=== PATIENT | male | born 1995 | race Caucasian/White ===

== ENCOUNTER 2019-11-30 12:10 | Observation (INO) ==
[2019-11-30] MEDS ORDERED: SODIUM CHLORIDE 0.9% 1000ML 1,000 ML IV SCH (12:30)
--- NOTE | 2019-11-30 12:33 | Emergency Department Note ---
Impression & Plan Acute appendicitis, Abdominal pain ED Provider Note NAME: TONJA SORIA AGE: 24 SEX: M : 1995 ARRIVES VIA: Walk-In INFORMANT: Patient, ED PROVIDER(S): Dylon Hoyos DO CHIEF COMPLAINT: Abdominal pain HPI: The patient is a 24-year-old male who presented to the emergency department for an evaluation of abdominal pain. The patient is a 2-day history of abdominal pain which began diffusely but now is located in the right lower quadrant. He denies having any nausea or vomiting. He has had no fevers. He is noticed no diarrhea or rectal bleeding. The patient denies having any chest pain or difficulty breathing. He is not been seen for this pain. He states the pain is worsened with any movement as well as ambulation. He also states the pain is worsened with deep breath. The patient states his pain is moderate at this time but is relieved with lying flat. He has no testicular pain. He denies having any inguinal pain or swelling. ROS: See above HPI for pertinent positives & negatives. A total of 10 systems reviewed and were otherwise negative. PAST MEDICAL HISTORY: See Below PAST SURGICAL HISTORY: See Below FAMILY HISTORY: See Below SOCIAL HISTORY: See Below HOME MEDICATIONS: See Below ALLERGIES: See Below VITALS: See Below PHYSICAL EXAMINATION: GENERAL: Patient is awake alert in no acute distress patient is resting comfortably and showing no signs of anxiety EYES: The conjunctivae are clear. The pupils are round and reactive. EARS, NOSE, MOUTH AND THROAT: The nose is without any evidence of any deformity. Mucous membranes are moist. Tongue is midline. NECK: The neck is nontender and supple. RESPIRATORY: Normal respiratory effort is noted there is no evidence of wheezing rhonchi or rales CARDIOVASCULAR: Regular rate and rhythm noted there no murmurs rubs or gallops normal S1 normal S2. GASTROINTESTINAL: The abdomen is soft and nondistended. There is guarding in the right lower quadrant palpation. MUSCULOSKELETAL/EXTREMITIES: There is no evidence of gross deformity full range of motion is noted in the hips and shoulders. SKIN: There is no obvious evidence of any rash. There are no petechiae, pallor or cyanosis noted. NEUROLOGIC: Patient is awake alert and oriented x3. Gait is steady. MEDICAL DECISION MAKING: The patient is a 24-year-old male who presented to the emergency department for an evaluation of right lower quadrant abdominal pain. The patient's history and physical exam appear to be consistent with acute appendicitis. He was treated with IV fluids in the emergency department. He did not request any pain medication. I discussed the patient's laboratory and radiographic studies with him. On CT he was found to have signs of acute appendicitis. I discussed this case with the on-call general surgeon. They will evaluate the patient in the emergency department for further management and disposition. Triage Nursing notes reviewed. Prior medical records reviewed Vital Signs: reviewed and remarkable for no significant abnormalities Differential diagnosis: Appendicitis, testicular torsion, infections, diverticulitis, UTI, obstruction, mesenteric ischemia, aortic pathology, inflammatory bowel disease, renal colic, PUD, pancreatitis, biliary pathology, hernia, volvulus, constipation, as well as other pathologies. ER treatment provided: See below Diagnostics interpreted by me: ECG: none Cardiac Monitoring: An order was placed for continuous cardiac monitoring. The monitor shows a rate of 88 with sinus rhythm. Laboratory studies: As stated above and show below. Imaging studies: See below Consultation(s): 1320: I discussed this case with Shannon who is on-call for the general surgical group. They will evaluate the patient in the emergency department for further management and disposition. ED COURSE: Procedures: none PDMP:reviewed and no issues Critical Care: None Past Med/Surg History Medical History Heart murmur Social History Smoking Status: Never smoker Feels Safe at Home: Yes Results & Data (ED) Vital Signs Vital Signs - 24 hr 11/30/19 12:12 11/30/19 12:36 Temperature 36.8 C Temperature Source Oral Pulse Rate 74 Respiratory Rate 16 Blood Pressure 119/79 Blood Pressure Mean 92 Pulse Oximetry 99 95 Oxygen Delivery Method Room Air Room Air Sepsis Recent Fever Within 48 Hours No Sepsis New/Unexplained Change in Mental Status N/A Sepsis Action Taken by Nursing No Action Required Home Medications Current Medication List: was personally reviewed by me Laboratory Data Attestation: I reviewed the patient's lab results. Result diagrams: 11/30/19 12:30 11/30/19 12:30 Lab Results 11/30/19 11/30/19 11/30/19 Range/Units 12:30 12:30 12:30 WBC 11.71 H (4.8-10.8) K/uL RBC 5.01 (4.7-6.1) M/uL Hgb 16.0 (14.0-18.0) g/dL POC Hgb (14.0-18.0) g/dl Hct 45.1 (42-52) % POC Hct (42-52) % MCV 90.0 (80-100) fL MCH 31.9 (25-34) pg MCHC 35.5 (32-36) g/dL RDW Std Deviation 40.0 (36.4-46.3) fL RDW Coeff of Vandana 12.3 (11.5-14.5) % Plt Count 200 (130-400) K/uL MPV 10.4 (7.4-10.4) fL Immature Gran % (Auto) 0.1 % Neut % (Auto) 71.3 % Lymph % (Auto) 18.4 % [place] % (Auto) 8.8 % Eos % (Auto) 1.3 % Baso % (Auto) 0.1 % Neut # (Auto) 8.35 H (1.4-6.5) K/uL Lymph # (Auto) 2.16 (1.2-3.4) K/uL [place] # (Auto) 1.03 H (0.11-0.59) K/uL Eos # (Auto) 0.15 (0-0.5) K/uL Baso # (Auto) 0.01 (0-0.2) K/uL Immature Gran # (Auto) 0.01 (0.00-0.02) K/uL POC Sodium (135-144) mmol/L Sodium 139 (136-145) mmol/L POC Potassium (3.3-5.0) mmol/L Potassium 3.8 (3.5-5.1) mmol/L POC Chloride (101-112) mmol/L Chloride 104 (98-107) mmol/L Carbon Dioxide 30 (21-32) mmol/L POC Total CO2 (24-31) mmol/L Anion Gap 5.0 (3-11) POC Anion Gap (16-25) mmol/L POC BUN (7-18) mg/dl BUN 7 (7-18) mg/dl Creatinine 0.94 (0.6-1.4) mg/dl POC Creatinine (0.6-1.3) mg/dl Est Cr Clr Drug Dosing 143.3 ml/min Est GFR ( Amer) 132.9 Est GFR (Non-Af Amer) 114.6 BUN/Creatinine Ratio 7.7 L (10-20) Glucose 92 (70-99) mg/dl POC Glucose (other) (70-99) mg/dl Calcium 9.8 (8.5-10.1) mg/dl POC Ioniz Calcium Francisco (1.12-1.32) mmol/l Total Bilirubin 1.5 H (0.2-1) mg/dl AST 8 L (15-37) U/L ALT 18 (12-78) U/L Alkaline Phosphatase 97 (45-117) U/L Total Protein 8.3 H (6.4-8.2) gm/dl Albumin 4.7 (3.4-5.0) gm/dl Globulin 3.6 (2.5-4.0) gm/dl Albumin/Globulin Ratio 1.3 (0.9-2) Lipase 69 L (73-393) U/L Urine Color Yellow Urine Appearance Clear (Clear) Urine pH 7.0 (4.5-7.5) Ur Specific [place] 1.015 (1.000-1.030) Urine Protein Negative (Negative) Urine Glucose (UA) Negative (Negative) Urine Ketones Negative (Negative) Urine Blood Negative (Negative) Urine Nitrite Negative (Negative) Urine Bilirubin Negative (Negative) Urine Urobilinogen Negative (Negative) Ur Leukocyte Esterase Negative (Negative) 11/30/19 Range/Units 12:34 WBC (4.8-10.8) K/uL RBC (4.7-6.1) M/uL Hgb (14.0-18.0) g/dL POC Hgb 16.0 (14.0-18.0) g/dl Hct (42-52) % POC Hct 47 (42-52) % MCV (80-100) fL MCH (25-34) pg MCHC (32-36) g/dL RDW Std Deviation (36.4-46.3) fL RDW Coeff of Vandana (11.5-14.5) % Plt Count (130-400) K/uL MPV (7.4-10.4) fL Immature Gran % (Auto) % Neut % (Auto) % Lymph % (Auto) % [place] % (Auto) % Eos % (Auto) % Baso % (Auto) % Neut # (Auto) (1.4-6.5) K/uL Lymph # (Auto) (1.2-3.4) K/uL [place] # (Auto) (0.11-0.59) K/uL Eos # (Auto) (0-0.5) K/uL Baso # (Auto) (0-0.2) K/uL Immature Gran # (Auto) (0.00-0.02) K/uL POC Sodium 140 (135-144) mmol/L Sodium (136-145) mmol/L POC Potassium 4.0 (3.3-5.0) mmol/L Potassium (3.5-5.1) mmol/L POC Chloride 100 L (101-112) mmol/L Chloride (98-107) mmol/L Carbon Dioxide (21-32) mmol/L POC Total CO2 27 (24-31) mmol/L Anion Gap (3-11) POC Anion Gap 18.0 (16-25) mmol/L POC BUN 7 (7-18) mg/dl BUN (7-18) mg/dl Creatinine (0.6-1.4) mg/dl POC Creatinine 0.9 (0.6-1.3) mg/dl Est Cr Clr Drug Dosing ml/min Est GFR ( Amer) Est GFR (Non-Af Amer) BUN/Creatinine Ratio (10-20) Glucose (70-99) mg/dl POC Glucose (other) 97 (70-99) mg/dl Calcium (8.5-10.1) mg/dl POC Ioniz Calcium [place] 1.21 (1.12-1.32) mmol/l Total Bilirubin (0.2-1) mg/dl AST (15-37) U/L ALT (12-78) U/L Alkaline Phosphatase (45-117) U/L Total Protein (6.4-8.2) gm/dl Albumin (3.4-5.0) gm/dl Globulin (2.5-4.0) gm/dl Albumin/Globulin Ratio (0.9-2) Lipase (73-393) U/L Urine Color Urine Appearance (Clear) Urine pH (4.5-7.5) Ur Specific [place] (1.000-1.030) Urine Protein (Negative) Urine Glucose (UA) (Negative) Urine Ketones (Negative) Urine Blood (Negative) Urine Nitrite (Negative) Urine Bilirubin (Negative) Urine Urobilinogen (Negative) Ur Leukocyte Esterase (Negative) Administered Medications Sodium Chloride (Nss 1000ml) 1,000 mls @ 999 mls/hr IV .Q1H1M LUCIA Stop: 11/30/19 13:30 Last Admin: 11/30/19 12:38 Dose: 999 mls/hr Documented by: [id number] Discontinued Medications Ioversol (Ioversol 100ml) 94 ml IV ONCE ONE Stop: 11/30/19 13:03 Last Admin: 11/30/19 13:03 Dose: 94 ml Documented by: [id number] Imaging Data Radiologist's Impression: CT abd pelvis IV con only CLINICAL HISTORY: Right lower quadrant abdominal pain COMPARISON STUDY: None. TECHNIQUE: Patient was scanned in a dynamic helical fashion during intravenous administration of 93 cc of Optiray 320 A dose lowering technique was utilized adhering to the principles of ALARA. CT DOSE: 642.57 mGy.cm FINDINGS: Lower chest: The heart is normal in size and configuration, without pericardial effusion. The lung bases and pleural spaces are clear. Liver: There is minimal periportal edema likely secondary to hydration Gallbladder: Unremarkable. Spleen: Upper limits of normal in size Pancreas: Unremarkable. Adrenal glands: Unremarkable. Kidneys: There is symmetric renal cortical enhancement. The kidneys are normal in size without hydronephrosis. Bowel: There are no transition zones to indicate bowel obstruction. There is no evidence of acute diverticulitis. There is a dilated fluid-filled 13 mm in diameter appendix with extensive periappendiceal inflammatory change. The findings are indicative of acute appendicitis and surgical consultation is advocated. Minimal wall thickening of the terminal ileum is felt to be secondary to the appendiceal inflammatory changes. There are no fluid collections to indicate a drainable abscess. Peritoneum: There is a small amount of free fluid within the right paracolic gutter and pelvis. Vasculature: The abdominal aorta is normal in course and caliber. Adenopathy: Mildly prominent right ileocolic lymph nodes are felt to be reactive. Pelvic viscera: The bladder, and pelvic viscera are unremarkable. Skeletal structures: No destructive osseous lesions are seen. IMPRESSION: 1. Dilated fluid-filled appendix with extensive periappendiceal inflammatory changes. The findings are indicative of acute appendicitis. Surgical consultation is advocated. ACT 112: Negative or not required by law. Electronically signed by: Hung Rai M.D. 11/30/2019 1:15 PM Dictated: 11/30/19 1309 Transcribed: 11/30/19 1314 Blood Pressure Blood Pressure Findings: Normal blood pressure Discharge Plan Visit Data Chief Complaint: Abdominal Pain Stated Complaint: ABD PAIN ED Provider: Dylon Hoyos Discharge Problem: Acute appendicitis, Abdominal pain Patient Disposition: Being Evaluated by Surgeon Condition: Good Forms Stand Alone Forms: [facility] Referrals Referrals: [facility] [Primary Care Provider] - Discharge Problem: Acute appendicitis Qualifiers: Acute appendicitis type: with localized peritonitis Appendicitis gangrene presence: without gangrene Appendicitis perforation presence: without perforatio n Appendicitis abscess presence: without abscess Qualified Code(s): K35.30 - Acute appendicitis with localized peritonitis, without perforation or gangrene Abdominal pain Qualifiers: Abdominal location: right lower quadrant Qualified Code(s): R10.31 - Right low er quadrant pain
[2019-11-30 12:43] LABS: Appearance Urine Clear (Clear); Bilirubin Urine Negative (Negative); Blood Urine Negative (Negative); Color Urine Yellow; Glucose Urine UA Negative (Negative); Ketones Urine Negative (Negative); Leukocyte Esterase Urine Negative (Negative); Nitrite Urine Negative (Negative); Protein Urine Negative (Negative); Specific Gravity Urine 1.015 (1.000-1.030); Urobilinogen Urine Negative (Negative)
[2019-11-30 12:45] LABS: Basophils # (auto) 0.01 K/uL (0-0.2); Basophils % (auto) 0.1 %; Eosinophils # (auto) 0.15 K/uL (0-0.5); Eosinophils % (auto) 1.3 %; Hematocrit (blood only) 45.1 % (42-52); Immature Granulocytes # (auto) 0.01 K/uL (0.00-0.02); Immature Granulocytes % (auto) 0.1 %; Lymphocytes # (auto) 2.16 K/uL (1.2-3.4); Lymphocytes % (auto) 18.4 %; Mean Corpuscular Hemoglobin 31.9 pg (25-34); Mean Corpuscular Hgb Conc 35.5 g/dL (32-36); Mean Platelet Volume 10.4 fL (7.4-10.4); Monocytes # (auto) 1.03 K/uL (0.11-0.59); Monocytes % (auto) 8.8 %; Neutrophils # (auto) 8.35 K/uL (1.4-6.5); Neutrophils % (auto) 71.3 %; Platelet Count 200 K/uL (130-400); RDW Coefficient of Variation 12.3 % (11.5-14.5); Red Blood Count 5.01 M/uL (4.7-6.1); White Blood Count 11.71 K/uL (4.8-10.8)
[2019-11-30 12:47] LABS: iSTAT Creatinine 0.9 mg/dl (0.6-1.3); iSTAT Ionized Calcium 1.21 mmol/l (1.12-1.32)
[2019-11-30 12:53] LABS: Albumin Level 4.7 gm/dl (3.4-5.0); BUN Creatinine Ratio 7.7 (10-20); Calcium 9.8 mg/dl (8.5-10.1); Creatinine Clr Calc Pharmacy 143.3 ml/min; Est GFR (African American) 132.9; Est GFR (Non-African American) 114.6; Potassium 3.8 mmol/L (3.5-5.1)
[2019-11-30 12:56] LABS: Albumin Globulin Ratio 1.3 (0.9-2); Bilirubin,Total 1.5 mg/dl (0.2-1); Globulin 3.6 gm/dl (2.5-4.0); Total Protein 8.3 gm/dl (6.4-8.2)
[2019-11-30] MEDS ORDERED: IOVERSOL 100ml IV ONE (13:02)
--- NOTE | 2019-11-30 13:16 | CT Scan Report ---
CT abd pelvis IV con only CLINICAL HISTORY: Right lower quadrant abdominal pain COMPARISON STUDY: None. TECHNIQUE: Patient was scanned in a dynamic helical fashion during intravenous administration of 93 c c of Optiray 320 A dose lowering technique was utilized adhering to the principles of ALARA. CT DOSE: 642.57 mGy.cm FINDINGS: Lower chest: The heart is normal in size and configuration, without pericardial effusion. The lung ba ses and pleural spaces are clear. Liver: There is minimal periportal edema likely secondary to hydration Gallbladder: Unremarkable. Spleen: Upper limits of normal in size Pancreas: Unremarkable. Adrenal glands: Unremarkable. Kidneys: There is symmetric renal cortical enhancement. The kidneys are normal in size without hydron ephrosis. Bowel: There are no transition zones to indicate bowel obstruction. There is no evidence of acute div erticulitis. There is a dilated fluid-filled 13 mm in diameter appendix with extensive periappendicea l inflammatory change. The findings are indicative of acute appendicitis and surgical consultation is advocated. Minimal wall thickening of the terminal ileum is felt to be secondary to the appendiceal inflammatory changes. There are no fluid collections to indicate a drainable abscess. Peritoneum: There is a small amount of free fluid within the right paracolic gutter and pelvis. Vasculature: The abdominal aorta is normal in course and caliber. Adenopathy: Mildly prominent right ileocolic lymph nodes are felt to be reactive. Pelvic viscera: The bladder, and pelvic viscera are unremarkable. Skeletal structures: No destructive osseous lesions are seen. IMPRESSION: 1. Dilated fluid-filled appendix with extensive periappendiceal inflammatory changes. The findings ar e indicative of acute appendicitis. Surgical consultation is advocated. ACT 112: Negative or not required by law. Electronically signed by: Hung Rai M.D. 11/30/2019 1:15 PM
--- NOTE | 2019-11-30 14:08 | History & Physical Report ---
Date of Service November 30, 2019 Assessment & Plan (1) Acute appendicitis: 24 year-old male with 24 hour history of abdominal pain with no other symptoms now presenting with mild leukocytosis and CT scan consistent with acute appendicitis. Extensive periappendiceal inflammation on CT but no evidence of abscess or perforation. Plan: Discussed CT scan findings with patient. Recommend laparoscopic appendectomy. Discussed procedure, risks, recovery, and alternatives with patient. Patient a grees to proceed with surgery. Keep NPO will start IV abx preoperatively given extensive periappendiceal inflammation. Cipro and Flagyl due to penicillin allergy med/surg postop (2) Abdominal pain: secondary to acute appendicitis Discussed with Dr. Iraheta who is to evaluate patient preoperatively and sign consent form. History of Present Illness Chief Complaint: abdominal pain Primary Care Provider: [facility] Maksim is a 24 year-old male who presented to ED today with complaint of abdominal pain that began yesterday morning. More generalized pain at first and then now more located in the right lower abdomen. Denies of any associated fever, chills, nausea, vomiting, chest pain, shortness of breath, diarrhea, blood in stools, difficulty urinating , dysuria, or blood in urine. Never had this type of pain before. No prior abdominal surgeries. Has history of aortic murmur but otherwise healthy. ER work-up included labs which showed mild leukocytosis of 11K. CT scan of ab domen and pelvis with IV contrast showing dilated appendix at 13 mm with extensive periappendiceal inflammation, no evidence of abscess or perforation. Allergies Allergy/AdvReac Type Severity Reaction Status Date / Time amoxicillin [From Augmentin] AdvReac Unknown Verified 11/30/19 14:08 clavulanic acid AdvReac Unknown Verified 11/30/19 14:08 [From Augmentin] Penicillins AdvReac Unknown Verified 11/30/19 14:08 Past Med/Surg History Medical History (Updated 11/30/19 @ 13:19 by Dylon Hoyos DO) Heart murmur Surgical History (Updated 11/30/19 @ 14:03 by Shannon Serra PA-C) No history of previous surgery Family History (Updated 11/30/19 @ 14:04 by Shannon Serra PA-C) Grandfather Coronary heart disease Mother Atrial fibrillation Other Diabetes Social History Smoking Status: Never smoker Feels Safe at Home: Yes Review of Systems Review of Systems: All systems reviewed & are unremarkable except as noted in HPI & below Physical Exam Constitutional: WD/WN, vitals as above no acute distress and not ill appearing Respiratory: normal respiratory effort, lungs clear to auscultation Cardiovascular: RRR, no murmur, no edema Gastrointestinal (Abdomen): Inspection/Auscultation: abdomen normal to inspection; abdomen not distended Percussion/Palpation: + abdomen tender (RLQ, + McBurney's point), + guarding (RLQ on deep palpation) and abdomen soft; abdomen not rigid Skin: no rashes, warm and dry Psychiatric: A+Ox3, euthymic affect Results & Data Results & Data ([facility]) Vital Signs (Past 12 Hours) Vital Signs Temp Pulse Resp BP Pulse Ox 11/30/19 12:36 95 11/30/19 12:12 36.8 C 74 16 119/79 99 Laboratory Results 11/30/19 11/30/19 11/30/19 Range/Units 12:34 12:30 12:30 WBC (4.8-10.8) K/uL RBC (4.7-6.1) M/uL Hgb (14.0-18.0) g/dL POC Hgb 16.0 (14.0-18.0) g/dl Hct (42-52) % POC Hct 47 (42-52) % MCV (80-100) fL MCH (25-34) pg MCHC (32-36) g/dL RDW Std Deviation (36.4-46.3) fL RDW Coeff of Vandana (11.5-14.5) % Plt Count (130-400) K/uL MPV (7.4-10.4) fL Immature Gran % (Auto) % Neut % (Auto) % Lymph % (Auto) % [place] % (Auto) % Eos % (Auto) % Baso % (Auto) % Neut # (Auto) (1.4-6.5) K/uL Lymph # (Auto) (1.2-3.4) K/uL [place] # (Auto) (0.11-0.59) K/uL Eos # (Auto) (0-0.5) K/uL Baso # (Auto) (0-0.2) K/uL Immature Gran # (Auto) (0.00-0.02) K/uL POC Sodium 140 (135-144) mmol/L Sodium 139 (136-145) mmol/L POC Potassium 4.0 (3.3-5.0) mmol/L Potassium 3.8 (3.5-5.1) mmol/L POC Chloride 100 L (101-112) mmol/L Chloride 104 (98-107) mmol/L Carbon Dioxide 30 (21-32) mmol/L POC Total CO2 27 (24-31) mmol/L Anion Gap 5.0 (3-11) POC Anion Gap 18.0 (16-25) mmol/L POC BUN 7 (7-18) mg/dl BUN 7 (7-18) mg/dl Creatinine 0.94 (0.6-1.4) mg/dl POC Creatinine 0.9 (0.6-1.3) mg/dl Est Cr Clr Drug Dosing 143.3 ml/min Est GFR ( Amer) 132.9 Est GFR (Non-Af Amer) 114.6 BUN/Creatinine Ratio 7.7 L (10-20) Glucose 92 (70-99) mg/dl POC Glucose (other) 97 (70-99) mg/dl Calcium 9.8 (8.5-10.1) mg/dl POC Ioniz Calcium Francisco 1.21 (1.12-1.32) mmol/l Total Bilirubin 1.5 H (0.2-1) mg/dl AST 8 L (15-37) U/L ALT 18 (12-78) U/L Alkaline Phosphatase 97 (45-117) U/L Total Protein 8.3 H (6.4-8.2) gm/dl Albumin 4.7 (3.4-5.0) gm/dl Globulin 3.6 (2.5-4.0) gm/dl Albumin/Globulin Ratio 1.3 (0.9-2) Lipase 69 L (73-393) U/L Urine Color Yellow Urine Appearance Clear (Clear) Urine pH 7.0 (4.5-7.5) Ur Specific [place] 1.015 (1.000-1.030) Urine Protein Negative (Negative) Urine Glucose (UA) Negative (Negative) Urine Ketones Negative (Negative) Urine Blood Negative (Negative) Urine Nitrite Negative (Negative) Urine Bilirubin Negative (Negative) Urine Urobilinogen Negative (Negative) Ur Leukocyte Esterase Negative (Negative) 11/30/19 Range/Units 12:30 WBC 11.71 H (4.8-10.8) K/uL RBC 5.01 (4.7-6.1) M/uL Hgb 16.0 (14.0-18.0) g/dL POC Hgb (14.0-18.0) g/dl Hct 45.1 (42-52) % POC Hct (42-52) % MCV 90.0 (80-100) fL MCH 31.9 (25-34) pg MCHC 35.5 (32-36) g/dL RDW Std Deviation 40.0 (36.4-46.3) fL RDW Coeff of Vandana 12.3 (11.5-14.5) % Plt Count 200 (130-400) K/uL MPV 10.4 (7.4-10.4) fL Immature Gran % (Auto) 0.1 % Neut % (Auto) 71.3 % Lymph % (Auto) 18.4 % Mck[place]ley % (Auto) 8.8 % Eos % (Auto) 1.3 % Baso % (Auto) 0.1 % Neut # (Auto) 8.35 H (1.4-6.5) K/uL Lymph # (Auto) 2.16 (1.2-3.4) K/uL Mck[place] # (Auto) 1.03 H (0.11-0.59) K/uL Eos # (Auto) 0.15 (0-0.5) K/uL Baso # (Auto) 0.01 (0-0.2) K/uL Immature Gran # (Auto) 0.01 (0.00-0.02) K/uL POC Sodium (135-144) mmol/L Sodium (136-145) mmol/L POC Potassium (3.3-5.0) mmol/L Potassium (3.5-5.1) mmol/L POC Chloride (101-112) mmol/L Chloride (98-107) mmol/L Carbon Dioxide (21-32) mmol/L POC Total CO2 (24-31) mmol/L Anion Gap (3-11) POC Anion Gap (16-25) mmol/L POC BUN (7-18) mg/dl BUN (7-18) mg/dl Creatinine (0.6-1.4) mg/dl POC Creatinine (0.6-1.3) mg/dl Est Cr Clr Drug Dosing ml/min Est GFR ( Amer) Est GFR (Non-Af Amer) BUN/Creatinine Ratio (10-20) Glucose (70-99) mg/dl POC Glucose (other) (70-99) mg/dl Calcium (8.5-10.1) mg/dl POC Ioniz Calcium Francisco (1.12-1.32) mmol/l Total Bilirubin (0.2-1) mg/dl AST (15-37) U/L ALT (12-78) U/L Alkaline Phosphatase (45-117) U/L Total Protein (6.4-8.2) gm/dl Albumin (3.4-5.0) gm/dl Globulin (2.5-4.0) gm/dl Albumin/Globulin Ratio (0.9-2) Lipase (73-393) U/L Urine Color Urine Appearance (Clear) Urine pH (4.5-7.5) Ur Specific [place] (1.000-1.030) Urine Protein (Negative) Urine Glucose (UA) (Negative) Urine Ketones (Negative) Urine Blood (Negative) Urine Nitrite (Negative) Urine Bilirubin (Negative) Urine Urobilinogen (Negative) Ur Leukocyte Esterase (Negative) Diagnostic Findings CT abd pelvis IV con only CLINICAL HISTORY: Right lower quadrant abdominal pain COMPARISON STUDY: None. TECHNIQUE: Patient was scanned in a dynamic helical fashion during intravenous administration of 93 cc of Optiray 320 A dose lowering technique was utilized adhering to the principles of ALARA. CT DOSE: 642.57 mGy.cm FINDINGS: Lower chest: The heart is normal in size and configuration, without pericardial effusion. The lung bases and pleural spaces are clear. Liver: There is minimal periportal edema likely secondary to hydration Gallbladder: Unremarkable. Spleen: Upper limits of normal in size Pancreas: Unremarkable. Adrenal glands: Unremarkable. Kidneys: There is symmetric renal cortical enhancement. The kidneys are normal in size without hydronephrosis. Bowel: There are no transition zones to indicate bowel obstruction. There is no evidence of acute diverticulitis. There is a dilated fluid-filled 13 mm in diameter appendix with extensive periappendiceal inflammatory change. The findings are indicative of acute appendicitis and surgical consultation is advocated. Minimal wall thickening of the terminal ileum is felt to be secondary to the appendiceal inflammatory changes. There are no fluid collections to indicate a drainable abscess. Peritoneum: There is a small amount of free fluid within the right paracolic gutter and pelvis. Vasculature: The abdominal aorta is normal in course and caliber. Adenopathy: Mildly prominent right ileocolic lymph nodes are felt to be reactive. Pelvic viscera: The bladder, and pelvic viscera are unremarkable. Skeletal structures: No destructive osseous lesions are seen. IMPRESSION: 1. Dilated fluid-filled appendix with extensive periappendiceal inflammatory changes. The findings are indicative of acute appendicitis. Surgical consultation is advocated. Code Status & VTE Plan VTE Prophylaxis Plan VTE Prophylaxis will be ordered: Yes (1) Acute appendicitis Acute appendicitis type: with localized peritonitis Appendicitis abscess presence: without abscess Appendicitis gangrene presence: without gangrene Appendicitis perforation presence: without perforation Qualified Code(s): K35.30 - Acute appendicitis with localized peritonitis, without perforation or gangrene (2) Abdominal pain Abdominal location: right lower quadrant Qualified Code(s): R10.31 - Right l ower quadrant pain
--- NOTE | 2019-11-30 15:32 | Anesthesiology Consultation ---
Date of Service November 30, 2019 Assessment & Plan Chart Review Chart Review: Acceptable Risk for Surgery and Patient NOT seen in Pre Admission Testing Consults Requested none ASA [id number] Proposed Anesthesia Anesthesia Type: General History Surgery Operation Date: 11/30/19 10:50 Proposed Procedures p Laparoscopic Appendectomy - Kendall Iraheta MD Height/Weight Height: 6 ft 2 in Weight: 93 kg Allergies Allergy/AdvReac Type Severity Reaction Status Date / Time amoxicillin [From Augmentin] AdvReac Unknown Verified 11/30/19 14:08 clavulanic acid AdvReac Unknown Verified 11/30/19 14:08 [From Augmentin] Penicillins AdvReac Unknown Verified 11/30/19 14:08 Medications Home Medications Medication Instructions Recorded Confirmed Last Taken cetirizine [Zyrtec] 10 mg PO DAILY 11/30/19 11/30/19 11/28/19 NPO Date Last Intake of Fluids: 11/30/19 Time Last Intake of Fluids: 11:30 Last Intake of Fluids Comment: "half a cup of water" Date Last Intake of Solids: 11/29/19 Time Last Intake of Solids: 20:30 Past Medical History Medical History Heart murmur Exercise / Class Metabolic Activity 1 > 8 Run/Swim/Ski/Tennis Past Family History Family History Grandfather Coronary heart disease Mother Atrial fibrillation Other Diabetes Past Surgical History Surgical History No history of previous surgery Past Anesthesia History No Hx of Anesthesia Complications and No Family Hx of Anesthesia Complications History of PONV No Hx of PONV and No Hx of Motion Sickness Social History Smoking Status: Never smoker Physical Exam Vital Signs Last Vital Signs Temp 36.8 C 11/30/19 12:12 Pulse 67 11/30/19 14:02 Resp 18 11/30/19 14:02 BP 115/70 11/30/19 14:02 Pulse Ox 99 11/30/19 14:02 Testing Laboratory Results 11/30/19 12:30 11/30/19 12:30 Urine Color Yellow 11/30/19 12:30 Urine Appearance Clear (Clear) 08/18/20 12:30 Urine pH 7.0 (4.5-7.5) 11/30/19 12:30 Ur Specific [place] 1.015 (1.000-1.030) 11/30/19 12:30 Urine Protein Negative (Negative) 11/30/19 12:30 Urine Glucose (UA) Negative (Negative) 11/30/19 12:30 Urine Ketones Negative (Negative) 11/30/19 12:30 Urine Nitrite Negative (Negative) 11/30/19 12:30 Ur Leukocyte Esterase Negative (Negative) 11/30/19 12:30 11/30/19 12:34 POC Glucose (other) 97
[2019-11-30] MEDS ORDERED: ONDANSETRON INJ 2 MG/ML 2 ML VIAL ONE (15:35)
[2019-11-30] MEDS ORDERED: ROCURONIUM BROMIDE 10 MG/ML 5 ML VIAL IV ONE (15:35)
[2019-11-30] MEDS ORDERED: fentaNYL citrate 100 MCG/2 ML VIAL ONE ×2 (15:35→16:50)
[2019-11-30] MEDS ORDERED: MIDAZOLAM HCL 1 MG/ML 2ML VIAL ONE (15:35)
[2019-11-30] MEDS ORDERED: PROPOFOL IV EMULSION 10 MG/ML 20 ML VIAL IV ONE (15:35)
[2019-11-30] MEDS ORDERED: LIDOCAINE HCL 2% 2 ML VIAL/AMP(20MG/ML) INFIL ONE (15:35)
[2019-11-30] MEDS ORDERED: metroNIDAZOLE 500 MG/100 ML BAG IV STA (16:05)
[2019-11-30] MEDS ORDERED: ePHEDrine sulfate 50 MG/ML AMP IV PRN (16:06)
[2019-11-30] MEDS ORDERED: PROMETHAZINE HCL 12.5 MG in SODIUM CHLORIDE 0.9% 50 ML IV PRN (16:06)
[2019-11-30] MEDS ORDERED: ONDANSETRON INJ 2 MG/ML 2 ML VIAL IV PRN ×2 (16:06→17:37)
[2019-11-30] MEDS ORDERED: fentaNYL citrate 100 MCG/2 ML VIAL IV PRN (16:06)
[2019-11-30] MEDS ORDERED: ATROPINE SULFATE 0.1 MG/ML 10ML SYR IV PRN (16:06)
[2019-11-30] MEDS ORDERED: NALOXONE HCL 0.4 MG/1 ML VIAL/CARP IV PRN (16:06)
[2019-11-30] MEDS ORDERED: FLUMAZENIL 0.1 MG/1 ML 10 ML VIAL IV PRN (16:06)
[2019-11-30] MEDS ORDERED: HYDROmorphone INJ 1 MG/ML SYRINGE IV PRN (16:06)
[2019-11-30] MEDS ORDERED: BUPIVACAINE 0.5 % 5 MG/1 ML MPF 30ML VIAL ONE (16:08)
[2019-11-30] MEDS ORDERED: BACITRACIN OINT 15 GM TUBE ONE (16:08)
[2019-11-30] MEDS ORDERED: LIDOCAINE HCL 1% 20 ML VIAL ONE (16:08)
[2019-11-30] MEDS ORDERED: CIPROFLOXACIN 400MG / 200ML D5W IV ONE (16:09)
--- NOTE | 2019-11-30 16:16 | History & Physical Bridge Note ---
Date of Service November 30, 2019 History & Physical Bridge Note I have examined the patient, reviewed the History & Physical and in the interval since the performance of the History & Physical I have noted the following changes of clinical significance: no changes noted
[2019-11-30] MEDS ORDERED: GLYCOPYRROLATE 0.2 MG/ML VIAL ONE (17:17)
[2019-11-30] MEDS ORDERED: NEOSTIGMINE METHYLSULFATE 5 MG/5 ML SYR ONE (17:17)
--- NOTE | 2019-11-30 17:19 | Communication Note ---
Date of Service: November 30, 2019 covid rapid test negative
--- NOTE | 2019-11-30 17:33 | Post Operative Brief Note ---
Immediate Post Op Note v1 Date of Surgery November 30, 2019 Pre & Post Diagnosis Operation Date: 11/30/19 10:50 Pre-Op Diagnosis: Acute appendicitis. Post-Op Diagnosis: Acute appendicitis. 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
--- NOTE | 2019-11-30 18:16 | Anesthesiology Progress Note ---
Date of Service November 30, 2019 Anesthesia Post Procedure Vital Signs Vital Signs: Temp Pulse Pulse Pulse Resp BP BP 11/30/19 18:00 64 19 100/60 11/30/19 17:50 76 16 110/65 11/30/19 17:44 36.9 C 60 17 103/60 11/30/19 15:48 37.2 C 75 81 20 114/68 109/76 11/30/19 14:02 67 18 115/70 11/30/19 12:36 11/30/19 12:12 36.8 C 74 16 119/79 Pulse Ox 11/30/19 18:00 98 11/30/19 17:50 100 11/30/19 17:44 100 11/30/19 15:48 97 11/30/19 14:02 99 11/30/19 12:36 95 11/30/19 12:12 99 Pain Intensity Abdomen: Pain Intensity: 5 Transfer of Care Handoff Completed per policy Notes Mental Status: alert / awake / arousable Patient Amnestic to Procedure: Yes Nausea / Vomiting: adequately controlled Pain: adequately controlled Airway Patency, RR, SpO2: stable & adequate BP & HR: stable & adequate Hydration State: stable & adequate Anesthetic Complications: no major complications apparent
[2019-11-30] MEDS ORDERED: LACTATED RINGER'S 1,000 ML IV SCH (19:21)
[2019-11-30] MEDS: OXYCODONE/ACETAMINOPHEN 5mg/325mg TAB PO PRN ×2 (19:50→23:38)
[2019-11-30] MEDS: HYDROmorphone INJ 0.5 MG/0.5 ML SYR IV PRN (21:55)
[2019-11-30] MEDS: metroNIDAZOLE 500 MG/100 ML BAG IV SCH (23:30)
--- NOTE | 2019-11-30 23:52 | Operative Report (OR) ---
DATE OF OPERATION: 11/30/2019 PREOPERATIVE DIAGNOSIS: Acute appendicitis. POSTOPERATIVE DIAGNOSIS: Acute appendicitis. PROCEDURE: Laparoscopic appendectomy. SURGEON: Kendall Iraheta MD. ANESTHESIA: General. ESTIMATED BLOOD LOSS: About 10 mL. FINDINGS: Acute appendicitis, significant inflammation on the appendix, enlarged. COMPLICATIONS: None. INDICATIONS FOR THE PROCEDURE: This is a 24-year-old gentleman who presented to the ED with acute abdominal pain. The patient had a CT scan diagnosis of acute appendicitis. I recommended to do laparoscopic appendectomy, possible open. I did talk to the patient about the benefit, the risk, alternate procedure. I indicated the risks may include but not limited such as bleeding, infection, abscess, sepsis, injury to other organs, bowel obstruction. The patient understands. He signed informed consent and I answered all questions. DETAILS OF PROCEDURE: We brought the patient to the OR, put the patient in the supine position. The patient received SCD on bilateral legs to prevent DVT. Also, patient received 400 mg of Cipro IV for prophylactic antibiotic and patient also received 500 mg Flagyl IV for prophylactic antibiotic. The patient received general anesthesia without difficulty. The abdomen was prepped and draped in routine sterile fashion. After timeout, I injected the local anesthesia by using 1% lidocaine mixed with 0.5% Marcaine just above the umbilicus. Then I made a small incision just above umbilicus, opened fascia and opened peritoneum under direct vision, put a Marcia trocar in, connected to CO2 to create pneumoperitoneum. Flow rate at 6 liter per minute. Pressure not more than 14 mmHg. Once we got a nice pneumoperitoneum, we put the camera in, looked around the abdomen, shows normal finding on the small bowel, large bowel; however, the appendix showed significant inflammation with enlarge confirmed diagnosis of acute appendicitis, and also patient has a lot of scar around the cecum and once confirmed diagnosis, we put another two 5 mm trocar on the left lower quadrant where we mobilized the appendix and we used the Harmonic to take down the appendiceal. The patient had a lot of scar around the cecum. So once we reached the base of the appendix, we used a 45 mm Endo-KARIS staple for transection on the base of the appendix, rechecked the staple line intact. No leak. Then we removed the appendix through the catch bag. Then we reinserted Marcia trocar in, connected to CO2 to create pneumoperitoneum, again looked around the abdomen, shows staple line intact. No leak and no active bleeding. Then we removed all trocar under direct vision. No active bleeding from the trocar sites. Pneumoperitoneum was released, closed the umbilical incision, fascial layer by using #1 Vicryl [id number] x2, closed subcutaneous layer by using 2-0 Vicryl interruptedly, closed skin by using 4-0 Vicryl continuous running, closed another two 5 mm trocar site skin only by using 4-0 Vicryl. Then, we put the dressing on. The patient tolerated the procedure well. All instrument, needle and sponge count correct x2 at the end of the case. The patient transferred to recovery room in stable condition. I attest to the content of the Intraoperative Record and any orders documented therein. Any exception s are noted below.
[2019-12-01] MEDS: HYDROmorphone INJ 0.5 MG/0.5 ML SYR IV PRN ×2 (02:29→08:03)
[2019-12-01] MEDS ORDERED: CIPROFLOXACIN / D5W 200 MG/100 ML BAG IV SCH (04:00)
[2019-12-01] MEDS: OXYCODONE/ACETAMINOPHEN 5mg/325mg TAB PO PRN ×3 (05:51→15:02)
[2019-12-01] MEDS ORDERED: CIPROFLOXACIN / D5W 400 MG/200 ML BAG IV SCH (06:00)
[2019-12-01 06:19] LABS: Basophils # (auto) 0.01 K/uL (0-0.2); Basophils % (auto) 0.1 %; Eosinophils # (auto) 0.16 K/uL (0-0.5); Eosinophils % (auto) 1.6 %; Hemoglobin 13.7 g/dL (14.0-18.0); Immature Granulocytes # (auto) 0.02 K/uL (0.00-0.02); Immature Granulocytes % (auto) 0.2 %; Lymphocytes # (auto) 2.28 K/uL (1.2-3.4); Lymphocytes % (auto) 22.3 %; Mean Corpuscular Hemoglobin 31.1 pg (25-34); Mean Corpuscular Hgb Conc 34.3 g/dL (32-36); Mean Corpuscular Volume 90.9 fL (80-100); Mean Platelet Volume 10.4 fL (7.4-10.4); Monocytes # (auto) 1.18 K/uL (0.11-0.59); Monocytes % (auto) 11.5 %; Neutrophils # (auto) 6.57 K/uL (1.4-6.5); Neutrophils % (auto) 64.3 %; Platelet Count 167 K/uL (130-400); RDW Coefficient of Variation 12.3 % (11.5-14.5); White Blood Count 10.22 K/uL (4.8-10.8)
[2019-12-01 06:43] LABS: Albumin Level 3.4 gm/dl (3.4-5.0); BUN Creatinine Ratio 6.2 (10-20); Creatinine Clr Calc Pharmacy 144.9 ml/min; Est GFR (African American) 134.6; Est GFR (Non-African American) 116.1; Potassium 3.8 mmol/L (3.5-5.1)
[2019-12-01 06:50] LABS: Albumin Globulin Ratio 1.2 (0.9-2); Bilirubin,Total 1.5 mg/dl (0.2-1); Globulin 2.9 gm/dl (2.5-4.0); Total Protein 6.3 gm/dl (6.4-8.2)
[2019-12-01] MEDS: metroNIDAZOLE 500 MG/100 ML BAG IV SCH (08:08)
[2019-12-01] MEDS ORDERED: ACETAMINOPHEN 325 MG TAB PO PRN (08:30)
[2019-12-01] MEDS ORDERED: CETIRIZINE HCL 10 MG TABLET PO SCH (09:00)
[2019-12-01] MEDS ORDERED: IBUPROFEN 600 MG TAB PO PRN (09:45)
--- NOTE | 2019-12-01 12:06 | Surgery Progress Note ---
Date of Service December 01, 2019 Assessment & Plan (1) Acute appendicitis: POD # 1 s/p laparoscopic appendectomy -vitals stable, afebrile - moderate postop pain , controlled - adequate urine output but subjective urinary retention - no n/v Plan: Advised oral pain medication as needed instead of IV Dilaudid encouraged ambulation advance diet as tolerated will monitor urine output throughout day likely discharge this afternoon home with 5 days of cipro/flagyl Dr. Iraheta has seen and examined pt, agrees with above. Admission and Anticipated Discharge Date Admission Date: November 30, 2019 Subjective having some postop pain at incisions, preop pain resolved having some difficulty urinating since surgery but has had adequate urine output no n/v tolerated clear liquids pain being controlled with IV dilaudid and Percocet Physical Exam Constitutional: WD/WN, vitals as above no acute distress Respiratory: normal respiratory effort; no respiratory distress Gastrointestinal (Abdomen): Inspection/Auscultation: abdomen normal to inspection; abdomen not distended Percussion/Palpation: + abdomen tender (at incision sites and RLQ appropriate postop) Skin: no rashes, warm and dry + incision (Covered with dry dressings clean/dry/intact) Psychiatric: A+Ox3, euthymic affect Results & Data ([facility]) Vital Signs (Past 12 Hours) Vital Signs Temp Pulse Resp BP Pulse Ox 12/01/19 11:56 36.6 C 60 16 107/68 97 12/01/19 07:55 36.6 C 62 17 106/66 93 12/01/19 03:18 102/69 12/01/19 03:14 36.5 C 58 L 18 92/56 L 96 Laboratory Results 12/01/19 12/01/19 11/30/19 Range/Units 05:33 05:33 15:33 WBC 10.22 (4.8-10.8) K/uL RBC 4.40 L (4.7-6.1) M/uL Hgb 13.7 L (14.0-18.0) g/dL POC Hgb (14.0-18.0) g/dl Hct 40.0 L (42-52) % POC Hct (42-52) % MCV 90.9 (80-100) fL MCH 31.1 (25-34) pg MCHC 34.3 (32-36) g/dL RDW Std Deviation 41.0 (36.4-46.3) fL RDW Coeff of Vandana 12.3 (11.5-14.5) % Plt Count 167 (130-400) K/uL MPV 10.4 (7.4-10.4) fL Immature Gran % (Auto) 0.2 % Neut % (Auto) 64.3 % Lymph % (Auto) 22.3 % [place] % (Auto) 11.5 % Eos % (Auto) 1.6 % Baso % (Auto) 0.1 % Neut # (Auto) 6.57 H (1.4-6.5) K/uL Lymph # (Auto) 2.28 (1.2-3.4) K/uL [place] # (Auto) 1.18 H (0.11-0.59) K/uL Eos # (Auto) 0.16 (0-0.5) K/uL Baso # (Auto) 0.01 (0-0.2) K/uL Immature Gran # (Auto) 0.02 (0.00-0.02) K/uL POC Sodium (135-144) mmol/L Sodium 140 (136-145) mmol/L POC Potassium (3.3-5.0) mmol/L Potassium 3.8 (3.5-5.1) mmol/L POC Chloride (101-112) mmol/L Chloride 106 (98-107) mmol/L Carbon Dioxide 30 (21-32) mmol/L POC Total CO2 (24-31) mmol/L Anion Gap 4.0 (3-11) POC Anion Gap (16-25) mmol/L POC BUN (7-18) mg/dl BUN 6 L (7-18) mg/dl Creatinine 0.93 (0.6-1.4) mg/dl POC Creatinine (0.6-1.3) mg/dl Est Cr Clr Drug Dosing 144.9 ml/min Est GFR ( Amer) 134.6 Est GFR (Non-Af Amer) 116.1 BUN/Creatinine Ratio 6.2 L (10-20) Glucose 96 (70-99) mg/dl POC Glucose (other) (70-99) mg/dl Calcium 8.0 L D (8.5-10.1) mg/dl POC Ioniz Calcium [place] (1.12-1.32) mmol/l Total Bilirubin 1.5 H (0.2-1) mg/dl AST 5 L (15-37) U/L ALT 13 (12-78) U/L Alkaline Phosphatase 69 (45-117) U/L Total Protein 6.3 L D (6.4-8.2) gm/dl Albumin 3.4 (3.4-5.0) gm/dl Globulin 2.9 (2.5-4.0) gm/dl Albumin/Globulin Ratio 1.2 (0.9-2) Lipase (73-393) U/L Urine Color Urine Appearance (Clear) Urine pH (4.5-7.5) Ur Specific [place] (1.000-1.030) Urine Protein (Negative) Urine Glucose (UA) (Negative) Urine Ketones (Negative) Urine Blood (Negative) Urine Nitrite (Negative) Urine Bilirubin (Negative) Urine Urobilinogen (Negative) Ur Leukocyte Esterase (Negative) COVID-19 Eval Order SARS-CoV-2, RNA, NAAT NEGATIVE (NEGATIVE) 11/30/19 11/30/19 11/30/19 Range/Units 15:33 12:34 12:30 WBC (4.8-10.8) K/uL RBC (4.7-6.1) M/uL Hgb (14.0-18.0) g/dL POC Hgb 16.0 (14.0-18.0) g/dl Hct (42-52) % POC Hct 47 (42-52) % MCV (80-100) fL MCH (25-34) pg MCHC (32-36) g/dL RDW Std Deviation (36.4-46.3) fL RDW Coeff of Vandana (11.5-14.5) % Plt Count (130-400) K/uL MPV (7.4-10.4) fL Immature Gran % (Auto) % Neut % (Auto) % Lymph % (Auto) % [place] % (Auto) % Eos % (Auto) % Baso % (Auto) % Neut # (Auto) (1.4-6.5) K/uL Lymph # (Auto) (1.2-3.4) K/uL [place] # (Auto) (0.11-0.59) K/uL Eos # (Auto) (0-0.5) K/uL Baso # (Auto) (0-0.2) K/uL Immature Gran # (Auto) (0.00-0.02) K/uL POC Sodium 140 (135-144) mmol/L Sodium (136-145) mmol/L POC Potassium 4.0 (3.3-5.0) mmol/L Potassium (3.5-5.1) mmol/L POC Chloride 100 L (101-112) mmol/L Chloride (98-107) mmol/L Carbon Dioxide (21-32) mmol/L POC Total CO2 27 (24-31) mmol/L Anion Gap (3-11) POC Anion Gap 18.0 (16-25) mmol/L POC BUN 7 (7-18) mg/dl BUN (7-18) mg/dl Creatinine (0.6-1.4) mg/dl POC Creatinine 0.9 (0.6-1.3) mg/dl Est Cr Clr Drug Dosing ml/min Est GFR ( Amer) Est GFR (Non-Af Amer) BUN/Creatinine Ratio (10-20) Glucose (70-99) mg/dl POC Glucose (other) 97 (70-99) mg/dl Calcium (8.5-10.1) mg/dl POC Ioniz Calcium [place] 1.21 (1.12-1.32) mmol/l Total Bilirubin (0.2-1) mg/dl AST (15-37) U/L ALT (12-78) U/L Alkaline Phosphatase (45-117) U/L Total Protein (6.4-8.2) gm/dl Albumin (3.4-5.0) gm/dl Globulin (2.5-4.0) gm/dl Albumin/Globulin Ratio (0.9-2) Lipase (73-393) U/L Urine Color Yellow Urine Appearance Clear (Clear) Urine pH 7.0 (4.5-7.5) Ur Specific [place] 1.015 (1.000-1.030) Urine Protein Negative (Negative) Urine Glucose (UA) Negative (Negative) Urine Ketones Negative (Negative) Urine Blood Negative (Negative) Urine Nitrite Negative (Negative) Urine Bilirubin Negative (Negative) Urine Urobilinogen Negative (Negative) Ur Leukocyte Esterase Negative (Negative) COVID-19 Eval Order [facility] SARS-CoV-2, RNA, NAAT (NEGATIVE) 11/30/19 11/30/19 Range/Units 12:30 12:30 WBC 11.71 H (4.8-10.8) K/uL RBC 5.01 (4.7-6.1) M/uL Hgb 16.0 (14.0-18.0) g/dL POC Hgb (14.0-18.0) g/dl Hct 45.1 (42-52) % POC Hct (42-52) % MCV 90.0 (80-100) fL MCH 31.9 (25-34) pg MCHC 35.5 (32-36) g/dL RDW Std Deviation 40.0 (36.4-46.3) fL RDW Coeff of Vandana 12.3 (11.5-14.5) % Plt Count 200 (130-400) K/uL MPV 10.4 (7.4-10.4) fL Immature Gran % (Auto) 0.1 % Neut % (Auto) 71.3 % Lymph % (Auto) 18.4 % [place] % (Auto) 8.8 % Eos % (Auto) 1.3 % Baso % (Auto) 0.1 % Neut # (Auto) 8.35 H (1.4-6.5) K/uL Lymph # (Auto) 2.16 (1.2-3.4) K/uL [place] # (Auto) 1.03 H (0.11-0.59) K/uL Eos # (Auto) 0.15 (0-0.5) K/uL Baso # (Auto) 0.01 (0-0.2) K/uL Immature Gran # (Auto) 0.01 (0.00-0.02) K/uL POC Sodium (135-144) mmol/L Sodium 139 (136-145) mmol/L POC Potassium (3.3-5.0) mmol/L Potassium 3.8 (3.5-5.1) mmol/L POC Chloride (101-112) mmol/L Chloride 104 (98-107) mmol/L Carbon Dioxide 30 (21-32) mmol/L POC Total CO2 (24-31) mmol/L Anion Gap 5.0 (3-11) POC Anion Gap (16-25) mmol/L POC BUN (7-18) mg/dl BUN 7 (7-18) mg/dl Creatinine 0.94 (0.6-1.4) mg/dl POC Creatinine (0.6-1.3) mg/dl Est Cr Clr Drug Dosing 143.3 ml/min Est GFR ( Amer) 132.9 Est GFR (Non-Af Amer) 114.6 BUN/Creatinine Ratio 7.7 L (10-20) Glucose 92 (70-99) mg/dl POC Glucose (other) (70-99) mg/dl Calcium 9.8 (8.5-10.1) mg/dl POC Ioniz Calcium [place] (1.12-1.32) mmol/l Total Bilirubin 1.5 H (0.2-1) mg/dl AST 8 L (15-37) U/L ALT 18 (12-78) U/L Alkaline Phosphatase 97 (45-117) U/L Total Protein 8.3 H (6.4-8.2) gm/dl Albumin 4.7 (3.4-5.0) gm/dl Globulin 3.6 (2.5-4.0) gm/dl Albumin/Globulin Ratio 1.3 (0.9-2) Lipase 69 L (73-393) U/L Urine Color Urine Appearance (Clear) Urine pH (4.5-7.5) Ur Specific [place] (1.000-1.030) Urine Protein (Negative) Urine Glucose (UA) (Negative) Urine Ketones (Negative) Urine Blood (Negative) Urine Nitrite (Negative) Urine Bilirubin (Negative) Urine Urobilinogen (Negative) Ur Leukocyte Esterase (Negative) COVID-19 Eval Order SARS-CoV-2, RNA, NAAT (NEGATIVE) (1) Acute appendicitis Acute appendicitis type: with localized peritonitis Appendicitis abscess presence: without abscess Appendicitis gangrene presence: without gangrene Appendicitis perforation presence: without perforation Qualified Code(s): K35.30 - Acute appendicitis with localized peritonitis, without perforation or gangrene
--- NOTE | 2019-12-01 14:34 | Discharge Summary ---
Date of Service December 01, 2019 Admission HPI Per Admitting Provider Maksim is a 24 year-old male who presented to ED today with complaint of abdominal pain that began yesterday morning. More generalized pain at first and then now more located in the right lower abdomen. Denies of any associated fever, chills, nausea, vomiting, chest pain, shortness of breath, diarrhea, blood in stools, difficulty urinating , dysuria, or blood in urine. Never had this type of pain before. No prior abdominal surgeries. Has history of aortic murmur but otherwise healthy. ER work-up included labs which showed mild leukocytosis of 11K. CT scan of abdomen and pelvis with IV contrast showing dilated appendix at 13 mm with extensive periappendiceal inflammation, no evidence of abscess or perforation. Principal Diagnosis Acute appendicitis Discharge Data Allergies Allergy/AdvReac Type Severity Reaction Status Date / Time amoxicillin [From Augmentin] AdvReac Unknown Verified 11/30/19 14:08 clavulanic acid AdvReac Unknown Verified 11/30/19 14:08 [From Augmentin] Penicillins AdvReac Unknown Verified 11/30/19 14:08 Consultations 11/30/19 13:18 Consult General Surgery Stat Procedures Performed Operation Date: 11/30/19 10:50 Actual Procedures p Laparoscopic Appendectomy(Not Applicable) - Kendall Iraheta MD Ordered Studies 11/30/19 12:21 CT abd pelvis IV con only Stat Hospital Course (1) Acute appendicitis: Patient taken to operating room for laparoscopic appendectomy from emergency department by Dr. Iraheta. Patient found to have acute appendicitis with periappendiceal inflammation but no abscess or perforation. Patient tolerated procedure well without difficulties. Transferred to recovery room and then to medical/surgical floor for postoperative care. IV Cipro and flagyl were started for postop antibiotics, IV Dilaudid with PO Percocet prn pain, IV Zofran prn nausea and clear liquid diet. POD # 1 vitals stable, afebrile, moderate postop pain, has not ambulated hallway, mild difficulty with urination but able to urinate. Tolerated clear liquids. Encouraged to ambulate hallway and to take oral pain medication instead of IV pain meds to assess pain control. Patient evaluated later in morning and early afternoon and pain controlled, ambulated hallway, and able to urinate. Patient discharged home on POD # 1 in stable condition. Total Time Total Time Spent Total Time Spent (In Minutes): 30 Total Time Includes: Examination of the Patient, Discharge Planning and Medication Reconciliation Discharge Plan Discharge Items Patient Disposition: Home - Self-Care Reason For Visit: ABD PAIN Discharge Diagnosis: acute appendicitis Condition on Discharge: Good Activity: Per Instructions section Non-emergency contact: Surgeon Call non-emergency contact if: your pain is not controlled, your pain is worsening, your pain is concerning for you, you have a fever, your temperature is above 101, your wound has increased redness, your wound has increased drainage and your wound pain has increased Follow-up/Referrals: [place] [Primary Care Provider] - Diet: Regular Addtl Attending Provider Instructions: Post-Surgical ~Discharge Instructions Activity Recommendations: - lifting limitation: (25 pounds for 4 weeks), - exercise/sex/sports limit: (nonstrenuous for 2 weeks), - driving or machine use limit: (none for 1 week or until you are pain free and not taking narcotic pain medication), - Shower/bathe limit: (may shower beginning Friday) Diet: - Resume previous diet , advance as tolerated. SPECIAL CARE INSTRUCTIONS: - May shower on Friday, sponge bath and wash hair in meantime. Friday, remove outer dressings and shower. Let water run over incisions and pat dry. - Leave steri strips on for one week and then remove. - Call the surgeon's office with any questions or concerns - - (ex. temperature higher than 101 degrees F, excessive bleeding or pain). MEDICATIONS: - Resume previous medications unless instructed otherwise by your surgeon. - You may alternate extra strength Tylenol and Ibuprofen as needed for mild pain. - For example, you can take Tylenol and then three hours later Ibuprofen and so forth - Tylenol 650 mg every 6 hours as needed - Ibuprofen 600 mg every 6 hours as needed (take with food) - Percocet 1 every 4 hours, as needed for moderate to severe pain. - Take entire course of antibiotics as prescribed for 5 days. - May take OTC stool softener (Colace) while taking narcotic pain medication FOLLOW UP VISIT: - If not already scheduled, please call the office to schedule a one- two week follow-up appointment. Office number Pending Studies at Discharge: Yes (Pathology, will be reviewed at follow-up visit) Stand-Alone Forms: My [facility], Work/School Release (Inpt), Smoking Cessation Medications and DC Order Prescriptions: New oxycodone-acetaminophen [Percocet] 5-325 mg tablet 1 tab PO Q4H PRN (Reason: pain) Qty: 10 RF: 0 ciprofloxacin HCl [Cipro] 500 mg tablet 500 mg PO BID Qty: 10 RF: 0 metronidazole [Flagyl] 500 mg tablet 500 mg PO TID Qty: 15 RF: 0 Continued cetirizine [Zyrtec] 10 mg Tablet 10 mg PO DAILY RF: 0 Discharge Orders: Discharge Order (Routine); Ordered 12/01/19 Ordered By: Shannon Serra Admission Data Admit Date/Time: 11/30/19 17:37 Attending Provider: Kendall Iraheta Admit Provider: Kendall Iraheta Primary Care Provider: [facility] Other Providers: Kendall Iraheta
== END 2019-12-01 15:07 | disposition home or self-care (01) ==
LOC: ED 12:10 → OR 15:48 → 3N 15:48